=== PATIENT | female | born 1955 | race Caucasian/White ===

== ENCOUNTER 2016-12-10 13:41 | Emergency (ER) | payer BC ==
--- NOTE | 2016-12-10 14:52 | UC ---
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 - History of Current Complaint Chief Complaint: UCBiteInjury Stated Complaint: DOG BITE RIGHT ARM Time Seen by Provider: 12/10/16 14:33 ?: No Severity Currently: Mild Severity Initially: Mild Pain Intensity: 3 Pain Scale Used: 0-10 Numeric Onset/Duration: Sudden Onset Type of Bite: Animal Has Animal Been Immunized?: Yes Character: Puncture Aggravating Factor(s): Nothing Alleviating Factor(s): Nothing Associated Signs And Symptoms: Positive: Negative Animal Available for Observation: Yes Animal Control Notified: Yes - Allergies/Home Medications Allergies/Adverse Reactions: Allergies Allergy/AdvReac Type Severity Reaction Status Date / Time No Known Allergies Allergy Verified 12/10/16 14:05 Home Medications: Home Medications Multiple Vitamins W/ Minerals [Multivitamin Gummies Wome] 2 chw PO DAILY [History Confirmed 12/10/16] PMH/Surg Hx/FS Hx/Imm Hx Previously Healthy: Yes - Surgical History Surgical History: Yes Surgery Procedure, Year, and Place: 5 . hysterectomy. tonsilectomy - Family History Known Family History: Positive: None - Social History Occupation: Works From/At Home Lives: With Family Alcohol Use: Daily Alcohol Amount: [place] or wine daily Substance Use Type: None Smoking Status (MU): Never Smoked Tobacco - Immunization History Most Recent Tetanus Shot: 2-3 years ago Review of Systems Constitutional: Negative Skin: Other - 5 superfical scratches and 1 pw to right upper arm Eyes: Negative ENT: Negative Respiratory: Negative Cardiovascular: Negative Gastrointestinal: Negative Genitourinary: Negative Motor: Negative Neurovascular: Negative Musculoskeletal: Negative Neurological: Negative Psychological: Negative Is Patient Immunocompromised?: No All Other Systems Reviewed And Are Negative: Yes Physical Exam Triage Information Reviewed: Yes Appearance: Well-Appearing, No Pain Distress, Well-Nourished Vital Signs: Initial Vital Signs Temp 98.3 F 12/10/16 14:07 Pulse 72 12/10/16 14:07 Resp 18 12/10/16 14:07 BP 124/68 12/10/16 14:07 Pulse Ox 98 12/10/16 14:07 Eye Exam: Normal Eyes: Positive: Conjunctiva Clear ENT Exam: Normal ENT: Positive: Normal ENT inspection, Hearing grossly normal. Negative: Nasal congestion, Nasal drainage, Trismus, Muffled/hoarse voice Neck exam: Normal Neck: Positive: Supple, Nontender, No Lymphadenopathy Respiratory Exam: Normal Respiratory: Positive: Chest non-tender, No respiratory distress, No accessory muscle use Cardiovascular Exam: Normal Cardiovascular: Positive: RRR, Pulses Normal, Brisk Capillary Refill Neurological Exam: Normal Neurological: Positive: Alert, Muscle Tone Normal Psychological Exam: Normal Psychological: Positive: Normal Response To Family Skin Exam: Other Skin: Positive: Other - 5 abrasions and 1 pw on right upper arm Procedures - Laceration/Wound Repair 1 Location: upper extremity Description: Irregular Betadine Prep?: No Closure: SteriStrips Bite Injury Course/Dx - Course Course Of Treatment: Steri strip and lexx wrap. augmentin, ice to prevent swelling follow with pcp prn - Differential Dx/Diagnosis Provider Diagnoses: Dog bite right upper arm Discharge - Discharge Plan Condition: Stable Disposition: HOME Prescriptions: Amoxicillin/Clavulanate TAB* [Augmentin TAB 875*] 875 mg PO BID #20 tab Patient Education Materials: Amoxicillin/Clavulanate Potassium (By mouth), Animal Bite (ED), Steristrips (ED) Referrals: [facility] [facility] [Outside] - If Needed Additional Instructions: Follow with your primary care doctor if needed
== END 2016-12-10 15:16 | disposition home or self-care (01) ==
LOC: UCCORT 13:41
DX: S51.851A Open bite of right forearm, initial encounter (principal); W54.0XXA Bitten by dog, initial encounter
CPT/HCPCS: 12001; 99202; G0463